=== PATIENT | male | born 1985 | race African-American/Black ===

== ENCOUNTER 2022-11-06 18:17 | Emergency (ER) | payer MEDICAID ==
[~2022-11-06] VITALS: Ht 182.9 cm; Wt 89.0 kg
[2022-11-06] MEDS ORDERED: ALBUTEROL (0.083%) 2.5MG/3ML NEB HHN STA (18:47)
[2022-11-06] MEDS ORDERED: METHYLPREDNISOLONE SOD SUCC 125 MG/2 ML VIAL IV STA (18:47)
[2022-11-06] MEDS ORDERED: IPRATROPIUM BROMIDE (0.02%) 0.5MG/2.5ML NEB HHN STA (18:47)
[2022-11-06] MEDS ORDERED: SODIUM CHLORIDE 0.9% 1,000 ML IV ONE ×2 (19:00)
[2022-11-06 19:13] LABS: BASOPHILS % 0.5 % (0.0-2.0); EOSINOPHILS % 2.3 % (0.0-5.0); HEMOGLOBIN. 12.2 g/dL (14.0-18.0); LYMPHOCYTES % 18.8 % (20.0-50.0); MEAN CORPUSCULAR HEMOGLOBIN 30.7 pg (28.0-32.0); MEAN CORPUSCULAR VOLUME 90.9 fL (80.0-94.0); MEAN PLATELET VOLUME 8.4 fl (7.4-10.4); NEUTROPHILS % 69.4 % (40.0-76.0); PLATELET 213 x1000/uL (130-400); RED BLOOD CELL COUNT 3.96 mill/uL (4.7-6.1); RED CELL DISTRIBUTION WIDTH 14.8 % (11.6-14.6)
[2022-11-06 19:19] LABS: CHLORIDE 108 mEq/L (98-107)
[2022-11-06] MEDS ORDERED: PRED10TA MT (23:28)
[2022-11-06] MEDS ORDERED: ONDA4TAB50 MT (23:28)
[2022-11-06] MEDS ORDERED: BENZ100C86 MT (23:28)
[2022-11-07] MEDS ORDERED: IPRATROPIUM BROMIDE (0.02%) 0.5MG/2.5ML NEB HHN NR (00:30)
[2022-11-07] MEDS ORDERED: ALBUTEROL (0.083%) 2.5MG/3ML NEB HHN NR (00:30)
[2022-11-07 02:00] VITALS: BP 118/71
== END 2022-11-07 02:27 | disposition home or self-care (01) ==
LOC: ER 18:32
DX: J98.01 Acute bronchospasm (principal); R05.9 Cough, unspecified; Z20.822 Contact with and (suspected) exposure to COVID-19
CPT/HCPCS: 36415; 71045; 80053; 83605; 83880; 84484; 85025; 87040; 87426; 87804; 94640; 96361; 96374; 99285; C9803; J2930; J7030; Z7610

== ENCOUNTER 2025-05-11 12:33 | Emergency (ER) | payer MEDICAID ==
[~2025-05-11] VITALS: Ht 177.8 cm; Wt 87.0 kg
[~2025-05-11 12:33] MED LIST: BENZ100C86 MT; ONDA4TAB50 MT; PRED10TA MT
[2025-05-11 12:38] VITALS: O2SAT 100
[2025-05-11 16:01] LABS: BASOPHILS % 0.6 % (0.0-2.0); EOSINOPHILS % 1.3 % (0.0-5.0); HEMATOCRIT. 40.9 % (42.0-52.0); HEMOGLOBIN. 13.7 g/dL (14.0-18.0); LYMPHOCYTES % 33.7 % (20.0-50.0); MEAN PLATELET VOLUME 7.3 fl (7.4-10.4); MONOCYTES % 12.1 % (2.0-8.0); NEUTROPHILS % 52.3 % (40.0-76.0); PLATELET 227 x1000/uL (130-400); RED BLOOD CELL COUNT 4.62 mill/uL (4.7-6.1); RED CELL DISTRIBUTION WIDTH 15.4 % (11.6-14.6)
[2025-05-11 16:05] LABS: CLARITY URINE CLEAR (CLEAR); COLOR URINE YELLOW (YELLOW); GLUCOSE URINE NEGATIVE (NEGATIVE); KETONES URINE NEGATIVE (NEGATIVE); PH URINE 6.0 (4.5-8.0); PROTEIN URINE 1+ (NEGATIVE); SPECIFIC GRAVITY URINE 1.028 (1.005-1.030)
[2025-05-11 16:06] LABS: LEUKOCYTE ESTERASE URINE TRACE (NEGATIVE); NITRITE URINE NEGATIVE (NEGATIVE); OCCULT BLOOD URINE NEGATIVE (NEGATIVE); UROBILINOGEN URINE 1.0 E.U./dL (0.2-1.0)
[2025-05-11 16:07] LABS: BACTERIA URINE TRACE; RBC URINE NONE SEEN /hpf (0-2); SQUAMOUS EPITHELIAL CELL URINE RARE /lpf (RARE/1+)
[2025-05-11 16:25] LABS: *AMPHETAMINES SCREEN URINE PRESUMPTIVE POSITIVE (NEGATIVE); *BARBITURATES SCREEN URINE NEGATIVE (NEGATIVE); *BENZODIAZEPINES SCREEN URINE NEGATIVE (NEGATIVE); *COCAINE SCREEN URINE NEGATIVE (NEGATIVE); CANNABINOID URINE SCREEN NEGATIVE (NEGATIVE); ECSTASY MDMA SCREEN URINE CONF.TEST INDICATED (NEGATIVE); METHADONE URINE SCREEN NEGATIVE (NEGATIVE); OPIATES URINE SCREEN NEGATIVE (NEGATIVE); PHENCYCLIDINE URINE SCREEN PRESUMTIVE POSITIVE (NEGATIVE)
[2025-05-11 16:26] LABS: TROPONIN I HIGH SENSITIVITY 11 ng/L (3.0-53)
[2025-05-11 16:27] LABS: CREATININE 1.0 mg/dL (0.6-1.3); ETHANOL BLOOD < 10 mg/dL (<10); UREA NITROGEN BLOOD 13 mg/dL (9-23)
[2025-05-11 16:29] LABS: ASPARTATE AMINOTRANSFERASE 30 IU/L (<34); BILIRUBIN DIRECT 0.1 mg/dL (<=3.0); BILIRUBIN TOTAL 0.6 mg/dL (0.1-1.0); PROTEIN TOTAL 7.3 g/dL (6.0-8.3)
[2025-05-11 16:53] VITALS: BP 111/76; PULSE 91; RESP 18; TEMP 37.1; O2SAT 97
[2025-05-11 17:49] LABS: TROPONIN I HIGH SENSITIVITY 11 ng/L (3.0-53)
== END 2025-05-11 21:04 | disposition home or self-care (01) ==
LOC: ER 12:33 → EDBEDREQ 17:07 → CANBEDREQ 18:10 → ER 21:04
DX: F19.10 Other psychoactive substance abuse, uncomplicated (principal); Z79.899 Other long term (current) drug therapy
CPT/HCPCS: 36415; 71045; 80048; 80076; 80305; 80320; 81003; 84484; 85025; 93005; 99285; G0480